=== PATIENT | female | born 1975 | race Caucasian/White ===

== ENCOUNTER → 2016-05-18 | Outpatient (REF) | payer OTHER ==
[~2016-05-18] MED LIST: /ACETCOD3T OR
== END ==
LOC: M SFHCWAGY 14:01
PROVIDERS: ATTEND Nurse Practitioner Women's Health
DX: R87.610 Atypical squamous cells of undetermined significance on cytologic smear of cervix (ASC-US) (principal)

== ENCOUNTER → 2017-05-28 | Outpatient (REF) | payer BC ==
[2017-06-01 14:13] LABS: HPV HYBRID CAPTURE II Negative (Negative)
== END ==
LOC: M SFHCWAGY 09:58
DX: Z12.4 Encounter for screening for malignant neoplasm of cervix (principal)
CPT/HCPCS: G0123

== ENCOUNTER → 2017-06-16 | Outpatient (CLI) | payer BC | LOC: M WHC 09:37 | DX: Z12.31 Encounter for screening mammogram for malignant neoplasm of breast (principal) | CPT/HCPCS: 77067 ==

== ENCOUNTER → 2021-03-10 | Outpatient (REF) | payer BC, SELFPAY ==
[~2021-03-10] MED LIST changes: -/ACETCOD3T OR; +ACET1TAB16 OR
== END ==
LOC: M SFHCWAGY 10:21
PROVIDERS: ATTEND Nurse Practitioner Women's Health
DX: Z12.4 Encounter for screening for malignant neoplasm of cervix (principal)

== ENCOUNTER → 2021-06-11 | Outpatient (CLI) | payer OTHER | LOC: M WHC 10:59 | PROVIDERS: ATTEND Nurse Practitioner Women's Health | DX: Z12.31 Encounter for screening mammogram for malignant neoplasm of breast (principal) ==

== ENCOUNTER → 2022-06-11 | Outpatient (CLI) | payer OTHER | LOC: M WHC 13:18 | PROVIDERS: ATTEND Nurse Practitioner Family | DX: Z12.31 Encounter for screening mammogram for malignant neoplasm of breast (principal) ==

== ENCOUNTER → 2023-07-19 | Outpatient (CLI) | payer OTHER | LOC: M WHC 15:23 | PROVIDERS: ATTEND Nurse Practitioner Family | DX: Z12.31 Encounter for screening mammogram for malignant neoplasm of breast (principal) ==